=== PATIENT | female | born 1980 | race Caucasian/White ===

== ENCOUNTER 2021-12-15 08:00 | Outpatient (RCR) | payer OTHER, SELFPAY ==
--- NOTE | 2021-12-06 08:49 | PTOPEVAL ---
Thank you for referring Comfort Truong to [facility].? The patient is scheduled to be seen for therapy?2 x/week for 4 weeks. Please review, sign, date and return this plan of care JACKY. I agree with and certify that the following plan of care is medically necessary. Referring Physician Date Referring Provider: Dr. Monica Quezada Diagnosis left knee pain Onset Aug 2021 Additional Evaluation Detail x-ray: no structural injury, no tear. Previous therapy 2015 for right knee. Subjective Information Exercising at home Sep 18. She Query Text:As Reported By Patient/ caught her knee with medial Family knee pain. She c/o knee instability at times initially. But denies any instability in the past few weeks. She c/o stiffness with prolonged sitting. Mild limitations with normal daily task, walking, running, steps or ADL's. She was having issues with right ankle prior to the knee injury. She stopped ex and stretching in January due to ankle injury. Also c/o rohan hip /ITB region pain since 2017. She is unable to be on her side due to pain. Ex program: Low impact aerobics every 3x/wk since Jul. She walks her dog. She does not feel comfortable with community activities due to virus. Pain Assessment Left Knee(s) Reported Pain Level 0 Lowest Pain Intensity 0 Greatest Pain Intensity 0 Lower Extremity Range of Motion General Lower Extremity Range of Motion Reason Not Measured WNL/Left,WNL/Right Lower Extremity Muscle Strength Testing General Lower Extremity Strength Gross Lower Extremity Strength rohan knee flex/ext 5/5 rohan hip flex: 4/5, ext: 3/5, hip abd: 3/5 Muscle Length Testing Muscle Length Testing Piriformis w/Hip Flexion <90 Degrees (R) Mild Tightness,(L) Mild Tightness Left Hamstring Length -40:(90 - 90 Position) Right Hamstring Length -40:(90 - 90 Position) Posture Standing Position Head/C-Spine Posture Forward Head Thoracic Spine Posture Increased Kyphosis Lumbar Spine Posture
--- NOTE | 2021-12-20 09:01 | PCPTNOTE ---
Patient came in, then cancelled her scheduled appointment this date due to several people coming in without mask this morning.
--- NOTE | 2021-12-22 10:30 | PCPTNOTE ---
Patient called & cancelled scheduled appointment this date due to hurting her hip.
--- NOTE | 2021-12-28 08:21 | PCPTNOTE ---
Patient called & cancelled scheduled appointment this date due to hip pain. She did not reschedule her re-eval. Will plan to DC therapy services.
--- NOTE | 2021-12-30 08:52 | PCPTNOTE ---
Admitting Provider: Attending Provider: Dr. Monica Quezada Patient:Comfort Truong Date of :1980 Physical Therapy Discharge Summary Patient called to cancel her remaining therapy visits. She states she hurt her hip again and did not want to return to therapy. She was seen for 3 therapy visits since 12/06/2021 07:45.. The goals have been not met due to limited therapy visits. Thank you for referring this patient to [facility]. Please review, sign, date and return this discharge summary JACKY. I have been updated about the patient's current status and I agree with discharge from the above service at this time. Referring Physician Date
== END 2021-12-31 09:41 | disposition home or self-care (01) ==
LOC: ANHPT 08:00
DX: M25.562 Pain in left knee (principal)
CPT/HCPCS: 97112; 97161; 97530

== ENCOUNTER 2022-03-16 20:15 | Emergency (ER) | payer OTHER, SELFPAY ==
--- NOTE | ~2022-03-16 | CT_ITS ---
EXAMINATION: CT abdomen pelvis w con DATE: 03/16/2022 22:50 INDICATION: Generalized abdominal pain TECHNIQUE: Computed tomography (CT) of the abdomen and pelvis was performed with 100 mL Omnipaque-300 intravenous contrast. Automated exposure control and iterative reconstruction technique were employe d. The dose-length product was 1233.28 mGy-cm. COMPARISON: None. FINDINGS: Exam limited by respiratory and bowel motion. Lower thorax: Unremarkable Liver: Normal. Biliary/Gallbladder: Gallbladder is absent. No bile duct dilation. Pancreas: No mass or duct dilation. Spleen: Normal. Adrenals:No mass. Kidneys: Simple left inferior pole cyst. No stone or hydronephrosis. GI tract: No small or large bowel dilation. Normal appendix. Mesentery/Peritoneum: No ascites, mass, or free air. Retroperitoneum: No mass. Pelvis: Pelvic organs are within normal limits. Soft Tissues: Soft tissues and body wall unremarkable. Bones: No acute osseous finding. IMPRESSION: Motion limited examination. Within that constraint, no acute abdominopelvic process detected. Reviewed, dictated and finalized at location K. IMPRESSION: Motion limited examination. Within that constraint, no acute abdominopelvic pro cess detected.
[2022-03-16 20:17] VITALS: BP 144/76; PULSE 112; RESP 18; TEMP 36.8; O2SAT 98
[2022-03-16] MEDS: SODIUM CHLORIDE 0.9% IV 1,000 ML 999 ML IV CONT (21:15)
[2022-03-16 21:23] LABS: Basophils Absolute Auto 0.1 K/mm3 (0.0-0.1); Basophils Percent Auto 0.7 % (0.2-1.2); Eosinophils Absolute Auto 0.2 K/mm3 (0-0.3); Eosinophils Percent Auto 1.8 % (0-4.4); Hematocrit 38.6 % (37.0-47.0); Hemoglobin 13.5 g/dL (12.0-15.0); Immature Granulocyte Absolute 0.03 K/mm3 (0.00-0.031); Immature Granulocyte Percent A 0.3 % (0-0.5); Lymphocytes Absolute Auto 2.24 K/mm3 (0.9-3.2); Lymphocytes Percent Auto 22.5 % (18.3-44.2); Mean Corpuscular Hemoglobin 30.5 pg (26-34); Mean Corpuscular Volume 87.1 fl (80-100); Monocytes Absolute Auto 0.7 K/mm3 (0.1-0.6); Monocytes Percent Auto 6.8 % (2.6-8.5); Neutrophils Absolute Auto 6.8 K/mm3 (1.3-6.7); Neutrophils Percent Auto 67.9 % (45.5-73.1); Platelet Count Result 341 k/mm3 (150-375); Red Blood Count 4.43 M/mm3 (4.2-5.4); Red Cell Distribution Width 12.6 % (11.5-14.5)
[2022-03-16 21:33] LABS: Alanine Aminotransferase 17 U/L (6-35); Albumin Level 4.5 g/dL (3.5-5.1); Alkaline Phosphatase 91 U/L (38-126); Anion Gap 9 mmol/L (8-16); Aspartate Amino Transferase 20 U/L (14-36); Bilirubin,Total 0.3 mg/dL (0.2-1.3); Blood Urea Nitrogen 8 mg/dL (7-17); Calcium 9.4 mg/dL (8.4-10.2); Carbon Dioxide 19 mmol/L (22-30); Chloride 107 mmol/L (98-107); Estimated CRCL calculation 107 ml/min; Estimated Glomerular Filt Rate > 60; Glucose 110 mg/dL (65-110); Lipase 51 U/L (23-300); Potassium 3.7 mmol/L (3.4-5.0); Sodium 135 mmol/L (137-145)
[2022-03-16 21:34] LABS: Lactic Acid Reflex 0.8 mmol/L (0.7-2.0)
[2022-03-16 22:40] LABS: Appearance Urine Clear (Clear); Bilirubin Urine Negative (Negative); Blood Urine Negative (Negative); Color Urine Yellow (Yellow); Glucose Urine UA Negative (Negative); Ketones Urine 1+ mg/dL (Negative); Leukocyte Esterase Ur 1+ LEU/UL (Negative); Nitrate Urine Negative (Negative); Protein Urine Negative (Negative); Specific Grav Ur <= 1.005 (1.001-1.035); Urobilinogen Urine 0.2 mg/dL (<2.0); pH Urine 5.5 (5.0-9.0)
[2022-03-16 22:51] LABS: Bacteria Urine Trace /hpf; Mucus Urine Rare /lpf; Squamous Epithelial Cell Urine Occasional /hpf (Few); WBC Urine 0-3 /hpf
[2022-03-16 22:52] LABS: Add Urine Microscopic? YES
[2022-03-16 22:57] VITALS: BP 118/65; PULSE 95; RESP 20; O2SAT 98
--- NOTE | 2022-03-16 23:25 | ED.GENADULT ---
HPI - General Adult General Chief complaint: Abdominal Pain Stated complaint: abdominal pain Time Seen by Provider: 03/16/22 20:24 History of Present Illness HPI narrative: Patient is a 41-year-old female presents the emergency department with chief complaint of abdominal pain. Patient states she is had some abdominal cramping is had some mild loose stool at times and has had some constipation. Patient states is concerned that she may have IBS patient denies fever reports no blood in stool. Patient states that the pain is not improved by anything nor is it worsened by anything. Related Data Allergies Allergy/AdvReac Type Severity Reaction Status Date / Time No Known Allergies Allergy Verified 03/16/22 20:30 Review of Systems Review of Systems: A 10 system review of systems was completed on the patient and is negative except for what is stated in the HPI. Nursing and ancillary documentation was reviewed. PMFSH Comments Surgical history significant for cholecystectomy Denies significant past medical history Exam Narrative: GENERAL: Well-appearing, well-nourished, and in no acute distress. HEAD: Normocephalic, atraumatic. EYES: PERRLA and EOMI. ENT: Nares clear, no rhinorrhea or epistaxis. Mucous membranes moist. NECK: Supple. CHEST: Clear to auscultation. No respiratory distress. HEART: Regular rate and rhythm. No murmur heard. Normal peripheral pulses. ABDOMEN: Soft, mild tenderness to palpation, nondistended, normal active bowel sounds. EXTREMITIES: Normal range of motion. No edema. SKIN: Warm, dry, no rash. NEURO: No focal deficits. Alert and oriented x3. PSYCH: Normal mood and affect. Course Course Emergency Course: Laboratory studies are within normal limits. CT scan of the abdomen pelvis showed no evidence of acute abdominal pathology. Patient is feeling better. Patient was started on Bentyl will be discharged home to follow-up with her primary care physician. Vital Signs Vital signs: Vital Signs Temperature 36.8 C 03/16/22 20:17 Pulse Rate 112 H 03/16/22 20:17 Respiratory Rate 18 03/16/22 20:17 Blood Pressure 144/76 H 03/16/22 20:17 Pulse Oximetry 98 03/16/22 20:17 Oxygen Delivery Room Air 03/16/22 20:17 Temperature 36.8 C 03/16/22 20:17 Pulse Rate 95 03/16/22 22:57 Respiratory Rate 20 03/16/22 22:57 Blood Pressure 118/65 03/16/22 22:57 Pulse Oximetry 98 03/16/22 22:57 Oxygen Delivery Room Air 03/16/22 20:17 Medical Decision Making Vital Signs Vital Signs: Vital Signs Temperature 36.8 C 03/16/22 20:17 Pulse Rate 112 H 03/16/22 20:17 Respiratory Rate 18 03/16/22 20:17 Blood Pressure 144/76 H 03/16/22 20:17 Pulse Oximetry 98 03/16/22 20:17 Oxygen Delivery Room Air 03/16/22 20:17 Temperature 36.8 C 03/16/22 20:17 Pulse Rate 95 03/16/22 22:57 Respiratory Rate 20 03/16/22 22:57 Blood Pressure 118/65 03/16/22 22:57 Pulse Oximetry 98 03/16/22 22:57 Oxygen Delivery Room Air 03/16/22 20:17 Lab Data Result diagrams: 03/16/22 21:16 03/16/22 21:16 Labs: Lab Results 03/16/22 03/16/22 03/16/22 Range/Units 21:16 21:16 21:16 WBC 10.0 (4.5-10.0) K/mm3 RBC 4.43 (4.2-5.4) M/mm3 Hgb 13.5 (12.0-15.0) g/dL Hct 38.6 (37.0-47.0) % MCV 87.1 (80-100) fl MCH 30.5 (26-34) pg MCHC 35.0 (32-36) g/dl RDW 12.6 (11.5-14.5) % Plt Count 341 (150-375) k/mm3 MPV 9.0 (7.4-10.4) fl Immature Gran % (Auto) 0.3 (0-0.5) % Neut % (Auto) 67.9 (45.5-73.1) % Lymph % (Auto) 22.5 (18.3-44.2) % [place] % (Auto) 6.8 (2.6-8.5) % Eos % (Auto) 1.8 (0-4.4) % Baso % (Auto) 0.7 (0.2-1.2) % Lymph # (Auto) 2.24 (0.9-3.2) K/mm3 [place] # (Auto) 0.7 H (0.1-0.6) K/mm3 Eos # (Auto) 0.2 (0-0.3) K/mm3 Baso # (Auto) 0.1 (0.0-0.1) K/mm3 Abs Immat Gran (auto) 0.03 (0.00-0.031) K/mm3 Absolute Neuts (auto) 6.8 H (1.3
[2022-03-16 23:51] VITALS: BP 115/64; PULSE 86; RESP 18; O2SAT 99
== END 2022-03-16 23:52 | disposition home or self-care (01) ==
PROVIDERS: Emergency Provider Emergency Medicine
DX: R10.84 Generalized abdominal pain (principal)
CPT/HCPCS: 36415; 74177; 80053; 81001; 81025; 83605; 83690; 85025; 96360; 99284; J7030; Q9967

== ENCOUNTER 2022-05-27 00:42 | Day surgery (SDC) | payer OTHER, SELFPAY ==
[2022-05-10 16:01] VITALS: BMI 33.6
--- NOTE | 2022-05-26 15:17 | PM.HPGS ---
History of Present Illness History of Present Illness Consent: Risks, benefits, and alternatives have been discussed and questions answered. Patient agrees to proceed with procedure. Chief complaint: lower Abdominal Pain Narrative: Comfort Truong is a 42 year old female with a change in bowel habits. She has had quite a bit of diarrhea lately. She was trying to increase her intake of magnesium and for years would take a small amount of citrated magnesium every day. She also is using a probiotic. She has been getting quite a bit of abdominal pain. A CT scan was done in the emergency room which is unremarkable. Review of Systems Review of Systems: All systems reviewed & are unremarkable except as noted in HPI and below PMFSH Past Medical History Medical History Cholecystectomy planned Frequent use of laxatives Irritable bowel syndrome with mixed bowel habits Family History Family History Father Diabetes mellitus Hypertension Heart disease Mother Hypertension Social History Social History Smoking status: Never smoker Second hand tobacco smoke exposure: No Alcohol intake: never Substance use: never Substance use type: does not use Living arrangements: with family Gender identity (if verbalized by the patient): Female Spiritual care concerns: No Meds Home Medications and Allergies Home Medications Medication Instructions Recorded Confirmed Type sertraline 25 mg tablet 25 mg PO DAILY 04/15/22 05/10/22 History Allergies Allergy/AdvReac Type Severity Reaction Status Date / Time No Known Allergies Allergy Verified 05/27/22 08:22 Exam Resp: Auscultation: clear to auscultation bilaterally Cardio: Rate: regular rate Rhythm: regular rhythm GI: GI Palp: Yes Soft to palpation and No Tenderness to palpation present (GI) Assessment and Plan Assessment and plan (1) Change in bowel habits: Code(s): R19.4 - Change in bowel habit Status: Acute Assessment and Plan: Colonoscopy with possible biopsy or polypectomy or cautery or injection of substances.
[2022-05-27 08:24] VITALS: BP 111/67; PULSE 90; RESP 18; TEMP 36.6; O2SAT 98
[2022-05-27] MEDS: LACTATED RINGERS 1,000 ML 150 ML IV CONT (08:36)
--- NOTE | 2022-05-27 09:19 | P.PNAN_ITS ---
Anes - Initial Pre Proc Eval Procedure: Operation Date: 05/27/22 09:30 Proposed Procedures p Colonoscopy - Joel Tellez MD Date/Time: 05/27/22 09:19 Surgeon: Joel Tellez MD Pre Op Diagnosis: lower Abdominal Pain Patient Data Age: 42 Gender: F Height: 1.6 m Weight: 96.2 kg Last Vital Signs Temp 98 F 05/27/22 08:24 Pulse 90 05/27/22 08:24 Resp 18 05/27/22 08:24 BP 111/67 05/27/22 08:24 Pulse Ox 98 05/27/22 08:24 O2 Del Method Room Air 05/27/22 08:24 Allergies Allergy/AdvReac Type Severity Reaction Status Date / Time No Known Allergies Allergy Verified 05/27/22 08:22 Home Medications Medication Instructions Recorded Confirmed Type sertraline 25 mg tablet 25 mg PO DAILY 04/15/22 05/10/22 History Patient hx anesthesia problems: none Family hx anesthesia problems: none Results Review: All pre-operative results and documents have been reviewed as part of the pre- operative evaluation. [facility] Past Medical History Medical History Cholecystectomy planned Frequent use of laxatives Irritable bowel syndrome with mixed bowel habits Family History Family History Father Diabetes mellitus Hypertension Heart disease Mother Hypertension Social History Social History Smoking status: Never smoker Second hand tobacco smoke exposure: No Alcohol intake: never Substance use: never Substance use type: does not use Living arrangements: with family Gender identity (if verbalized by the patient): Female Spiritual care concerns: No Anes - Eval Final PreProcedure Day of Procedure 05/27/22 09:19 Patient weight: obese Heart: regular rate and rhythm Lungs: clear to auscultation Airway: Mallampati scale class II Neurological: alert and oriented Last oral intake: >/= 8 hours ASA classification: II Emergent: no Anesthetic plan: proceed Anesthesia type and monitoring: general GIVS and standard monitoring Results Review: All pre-operative results and documents have been reviewed as part of the pre- operative evaluation. Informed Consent: The patient's anesthetic plan and its attendant risks and benefits were discussed with the patient/family/POA. Questions were solicited and answers provided to the satisfaction of the patient/family/POA.
[2022-05-27 09:39] VITALS: BP 119/65; PULSE 81; RESP 20; O2SAT 96
[2022-05-27 09:49] VITALS: BP 112/63; PULSE 78; RESP 20; O2SAT 94
[2022-05-27 09:59] VITALS: BP 101/62; PULSE 70; RESP 19; O2SAT 99
== END 2022-05-27 10:15 | disposition home or self-care (01) ==
PROVIDERS: Visit Provider Internal Medicine Gastroenterology
PROC: 0DJD8ZZ Inspection of Lower Intestinal Tract, Via Natural or Artificial Opening Endoscopic (ICD-10-PCS; CPT 45378; principal; 2022-05-27 09:30)
DX: R19.4 Change in bowel habit (principal); R10.30 Lower abdominal pain, unspecified
CPT/HCPCS: 45378; J2704; J7120